=== PATIENT | female | born 1960 | race Caucasian/White ===

== ENCOUNTER → 2021-08-11 07:14 | Outpatient (BNVA) | payer BC, SELFPAY | PROVIDERS: PCP Internal Medicine; Referring Provider Internal Medicine; Visit Provider Physician Assistant | DX: Z13.89 Encounter for screening for other disorder (principal) ==

== ENCOUNTER 2022-05-25 10:25 | Outpatient (REF) | payer BC, SELFPAY ==
[2022-05-25 12:21] LABS: Alanine Aminotransferase 54 U/L (0-31); Anion Gap 8 (12-20); Aspartate Amino Transferase 46 U/L (5-31); Blood Urea Nitrogen 16 mg/dL (9-16); Calcium 9.2 mg/dL (8.4-10.2); Carbon Dioxide 32 mmol/L (22-29); Chloride 105 mmol/L (96-108); Cholesterol 238 mg/dL; Estimated Glomerular Filt Rate > 60; Glucose Fasting 83 mg/dL (60-99); HDL Cholesterol 42 mg/dL; LDL Cholesterol Calculated 165 mg/dl; Potassium 4.1 mmol/L (3.3-5.1); Sodium 141 mmol/L (135-145); Triglycerides 159 mg/dL
[2022-05-25 12:40] LABS: Vitamin D 25-OH Total 22.5 ng/mL (>30)
[2022-05-28 03:18] LABS: HPV mRNA E6/E7 rflx Not Detected (Not Detected)
== END 2022-05-25 10:26 | disposition home or self-care (01) ==
LOC: HO.HMGCLDS 10:25
PROVIDERS: PCP Internal Medicine; Visit Provider Internal Medicine
DX: Z00.00 Encounter for general adult medical examination without abnormal findings (principal); Z12.4 Encounter for screening for malignant neoplasm of cervix; Z11.51 Encounter for screening for human papillomavirus (HPV); E78.5 Hyperlipidemia, unspecified; F41.9 Anxiety disorder, unspecified; N95.1 Menopausal and female climacteric states; E55.9 Vitamin D deficiency, unspecified
CPT/HCPCS: 36415; 80048; 80061; 82306; 84450; 84460; 87624; 88142

== ENCOUNTER 2022-07-13 07:58 | Outpatient (REF) | payer BC, SELFPAY ==
--- NOTE | ~2022-07-13 | MM_ITS ---
EXAMINATION: MM SCREENING DIGITAL BREAST TOMOSYNTHESIS, BILATERAL CLINICAL INFORMATION: Screening. Asymptomatic. The lifetime risk of breast cancer based on the Tyrer-Cuzick Model is 9%. COMPARISON: Mammography: 11/28/2018, 08/10/2016 TECHNIQUE: Digital breast tomosynthesis is performed in both the craniocaudal and mediolateral oblique views along with computer-aided detection (CAD). Synthesized 2D images are generated from the tomosynthesis. FINDINGS: The breasts are heterogeneously dense, which may obscure small masses (ACR BI-RADS breast composition Category c). Fibronodular parenchymal pattern is similar to prior studies and there is no interval mass, developing density, or architectural abnormality. Again, there are numerous bilateral calcifications similar in number and distribution. The axilla and skin contours are unremarkable. No significant changes. MM/MM tomosynthesis screening BI IMPRESSION: No mammographic evidence of malignancy. ASSESSMENT: BI-RADS 2: Benign RECOMMENDATION: Routine annual mammography screening. This patient's information was entered into a reminder system with a target due date for their next mammogram.
== END 2022-07-13 07:59 | disposition home or self-care (01) ==
LOC: HO.MAMMO 07:58
PROVIDERS: PCP Internal Medicine; Visit Provider Internal Medicine
DX: Z12.31 Encounter for screening mammogram for malignant neoplasm of breast (principal)
CPT/HCPCS: 77063; 77067

== ENCOUNTER 2023-06-22 08:54 | Outpatient (AMB) | payer OTHER, SELFPAY ==
[2023-06-22 09:05] VITALS: BP 142/90; PULSE 74; O2SAT 97; BMI 22.7
--- NOTE | 2023-06-22 09:05 | MHC.PC.OV ---
Vital Signs 06/22/23 09:05 Height 5 ft 4 in Weight 132 lb BMI 22.7 BP 142/90 H Blood Pressure Location Rt brachial Position Sitting Pulse 74 Pulse Source Pulse Oximeter Pulse Oximetry (%) 97 Oxygen Delivery Method Room Air Intake Visit Reasons: PE Intake Note: Pt is here today for her PE: Last mammogram 07/13/22, Papsmear 05/25/22 and never had a colonoscope Allergies No Known Allergies Allergy (Verified 06/22/23 09:26) Medication List - Last Reconciled 06/22/23 by Lisha Lezama MD cholecalciferol (vitamin D3) 50 mcg PO DAILY lorazepam 0.5 mg PO DAILY PRN paroxetine HCl 20 mg PO DAILY Tobacco use date assessed: 06/22/23 Dental Screening Dental Screen Date: 06/22/23 Did you have a dental visit in the last 12 months?: Yes Did you have a dental problem in the last 6 months where you did not have access to dental care?: No Was dental information given to patient?: Patient has dentist HPI PE HPI Details 62-year-old lady here today for physical exam. She is up-to-date with her mammogram, last done 07/13/22, and already has an upcoming appointment for her recheck. Papsmear was done 05/25/22 and never had a colonoscopy. She has no family history for colon cancer and does not have any GI complaints, would like to try Cologuard testing instead. She has generalized anxiety disorder currently on paroxetine and lorazepam the latter taken only on as needed basis. Blood pressure mildly elevated on this visit, patient states that she has been under lot of stress taking care her sick dog. 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 1. Little interest or pleasure in doing things: not at all 2. Feeling down, depressed, or hopeless: not at all 3. Trouble falling or staying asleep, or sleeping too much: not at all 4. Feeling tired or having little energy: not at all 5. Poor appetite or overeating: not at all 6. Feeling bad about yourself - or that you are a failure or have let yourself or your family down: not at all 7. Trouble concentrating on things, such as reading the newspaper or watching television: not at all 8. Moving or speaking so slowly that other people could have noticed. Or the opposite - being so fidgety or restless that you have been moving around a lot more than usual: not at all 9. Thoughts that you would be better off or of hurting yourself in some way: not at all Total score: 0 Depression Screening Interpretation: Negative Depression Screening Done: Yes 64670 - PHQ-9 Billing: Yes Source: Developed by Drs. Sidney Lam, Sumaya Dowd, Otoniel Mtz and colleagues, with an educational chay from [employer]. Thrive Questionnaire Date Thrive assessed: 06/22/23 I am a: Patient What is your living situation today?: I have a steady place to live Within the past 12 months, did the food you bought not last and you didn't have the money to get more?: Never true Within the past 12 months, did you worry whether your food would run out before you got money to buy more?: Never true Do you have trouble paying for medicines?: No Do you have trouble getting transportation to medical appointments?: No Do you have trouble paying your heating and electricity bill?: No Do you have trouble taking care of your child, family member or friend?: No Do you have trouble with day-to-day activities such as bathing, preparing meals, shopping, managing finances, etc.?: No Are you currently unemployed and looking for a job?: No Are you interested in more education?: No THRIVE Score: 0 AUDIT C Alcohol Use Questionnaire (AUDIT-C) 1. How often do you have a drink containing alcohol?: Never Total Score: 0 NOEMY-7 AMB Questionnaire NOEMY-7 Date NOEMY - 7 assessed: 06/22/23 Feeling nervous, anxious, or on edge: 1 = Several days Not being able to stop or control worryin = Several days Worrying too much about different things: 0 = Not at all Trouble relaxin = Several days Being so restless that it is hard to sit still: 0 = Not at all Becoming easily annoyed or irritable: 2 = More than half the days Feeling afraid as if something awful might happen: 0 = Not at all Total NOEMY-7 score (0-4 normal; 5-9 mild; 10-14 moderate; 15-21 severe): 5 Source: Developed by Drs. Sidney Lam, Sumaya Dowd, Otoniel Mtz and colleagues, with an educational chay from [employer]. NOEMY-7 Assessment Billing NOEMY-7 Assessment Tool: NOEMY-7 Assessment 43729 Review of Systems Const Denies body aches, Denies fatigue, Denies fever(s), Denies headache(s) and Denies weakness Eyes Denies change in vision ENT Denies dizziness, Denies headache(s), Denies nasal congestion, Denies nasal discharge and Denies sore throat Card Denies chest pain, Denies lightheadedness, Denies palpitations and Denies dyspnea Resp Denies chest congestion, Denies cough, Denies dyspnea and Denies wheezing GI Denies abdominal pain, Denies change in bowel habits and Denies heartburn Denies urinary frequency, Denies dysuria and Denies urinary urgency Musc Reports no additional complaints Skin/Breast Denies lesions and Denies rash Neuro Denies dizziness, Denies headache(s) and Denies weakness Psych Reports no additional complaints Endo Denies fatigue, Denies polydipsia, Denies polyuria and Denies palpitations James/Lymph Denies easy bruising Aller/Immun Denies seasonal rhinorrhea and Denies wheezing Physical exam (Primary Care) Vital Signs: Last Vital Signs Pulse 74 06/22/23 09:05 BP 142/90 H 06/22/23 09:05 Pulse Ox 97 06/22/23 09:05 Oxygen Delivery Method Room Air 06/22/23 09:05 BMI result Body Mass Index 22.7 Tobacco/Smoking Status: Tobacco use Status Tobacco use date assessed 06/22/23 06/22/23 09:15 Patient Tobacco Use Status Never used Tobacco 06/22/23 09:15 e-Cigarette/Vaping Use Never Used 06/22/23 09:15 PHQ-9: PHQ-9 Score PHQ-9: Total score 0 06/22/23 09:44 Depression Screening Interpretation: Negative Thrive Assessment: Date of Thrive Assessment Date Thrive assessed 06/22/23 06/22/23 09:15 Const General: no acute distress and alert Orientation/consciousness: patient oriented x3 HENMT Head: Yes normocephalic and Yes atraumatic Ears: hearing grossly normal bilaterally, TM's normal bilaterally and EAC's normal General nose exam: Normal external nose present Face and sinus: Yes face symmetric Mouth: Normal oral and palatal mucosa present, tongue normal, oropharynx normal and moist mucous membranes Eyes General: appearance normal, both eyes and all related structures Periorbital: periorbital findings normal Eyelids: Yes eyelids normal Conjunctivae: conjunctivae normal Sclerae: sclerae normal Pupils: Equal, round and reactive pupils present EOM: EOMs intact bilaterally Neck Neck: Yes full ROM, Yes no lymphadenopathy and Yes supple Thyroid: Thyroid normal Chest Chest palpation & inspection: normal inspection of the chest Breast/axilla inspection: normal inspection of the breasts Breast/axilla palpation: normal palpation of the breasts Resp Effort & Inspection: normal respiratory effort and able to speak in complete sentences Auscultation: clear to auscultation bilaterally Cardio Palpation: normal PMI Rate: regular rate Rhythm: regular rhythm Heart sounds: S1 normal heart sound present and S2 normal heart sound present Bruits: no abdominal aortic bruits GI Inspection: Yes normal to inspection Palpation (GI): No Abdominal aortic bruit present, Soft to palpation, nontender, no guarding and no masses Auscultation: normal bowel sounds General: Yes no CVA tenderness Back/Spine/Pelvis Back: no CVA tenderness Skin General skin exam: no rashes or lesions noted Neuro General: patient oriented x3, gait normal, tone normal, moves all extremities, Normal light touch and pain sensation, no focal motor deficits and CN's II-XI intact bilaterally Cranial nerves: Yes Equal, round and reactive pupils present Extrem General: Yes full ROM, Yes no joint enlargement, Yes no clubbing, cyanosis or edema, Yes no pedal edema, Yes no calf tenderness and Yes normal gait Psych Appearance: grossly normal and well kempt Mental Status: mental status grossly normal Speech and movement: Normal speech and movement present Affect: normal affect Attitude: cooperative Thought process: Normal thought process present Thought content: Normal thought content present Assessment and Plan Assessment & Plan (1) Adult general medical exam: Code(s): Z00.00 - Encounter for general adult medical examination without abnormal findings Plan: Will check appropriate labs. Continue with regular dental visit every 6 months and regular eye exams, at least every 2 years. Take adequate calcium in diet and vitamin-D 3 at 2000 IU per cap once a day, in addition to weight-bearing exercises to help maintain good muscle tone and weight control. Instructed to do self-breast exam, and continue with yearly mammogram, already has an appointment scheduled for her repeat mammogram this year. Up-to-date with her cervical cancer screening.. Cologuard testing ordered for colon cancer screening. Reminded to get her flu vaccine and COVID vaccination as well shingles vaccination. Up-to-date with Tdap (2) Anxiety: Code(s): F41.9 - Anxiety disorder, unspecified Plan: Continue with paroxetine, refill sent for lorazepam to take only as needed for acute anxiety attacks (3) Vitamin D deficiency: Code(s): E55.9 - Vitamin D deficiency, unspecified Plan: Will repeat another vitamin-D level, in the meantime continue with cholecalciferol 50 mcg a day (4) Dyslipidemia: Code(s): E78.5 - Hyperlipidemia, unspecified Plan: Fasting lipid panel ordered. Reinforced importance of following a healthy diet and getting regular exercise (5) Elevated blood pressure reading: Code(s): R03.0 - Elevated blood-pressure reading, without diagnosis of hypertension Plan: Reinforced importance of following a low-salt diet, getting regular exercise, and managing stress levels. EKG done today showed normal sinus rhythm with no acute ST-T changes seen. Return to clinic in 2 weeks to check blood pressure with nurse. Orders: Orders Vitamin D 25-OH Total Today E55.9 - Vitamin D deficiency, unspecified, E78.5 - Hyperlipidemia, unspecified, F41.9 - Anxiety disorder, unspecified, Z00.00 - Encounter for general adult medical examination without abnormal findings Complete Blood Count Auto Diff Today E55.9 - Vitamin D deficiency, unspecified, E78.5 - Hyperlipidemia, unspecified, F41.9 - Anxiety disorder, unspecified, Z00.00 - Encounter for general adult medical examination without abnormal findings Lipid Panel Today E55.9 - Vitamin D deficiency, unspecified, E78.5 - Hyperlipidemia, unspecified, F41.9 - Anxiety disorder, unspecified, Z00.00 - Encounter for general adult medical examination without abnormal findings Comprehensive [place]. Panel Fast Today E55.9 - Vitamin D deficiency, unspecified, E78.5 - Hyperlipidemia, unspecified, F41.9 - Anxiety disorder, unspecified, Z00.00 - Encounter for general adult medical examination without abnormal findings AMB EKG-In Office Today R03.0 - Elevated blood-pressure reading, without diagnosis of hypertension, Z82.49 - Family history of ischemic heart disease and other diseases of the circulatory system Referrals Cologuard Test Z12.11 - Encounter for screening for malignant neoplasm of colon, Z12.12 - Encounter for screening for malignant neoplasm of rectum Medications: Refilled lorazepam 0.5 mg PO DAILY PRN 10 tabs 0RF anxiety F41.9 - Anxiety disorder, unspecified Coding Level of Care Code Est Pt Prev Care 40-64y(62367) Diagnoses Adult general medical exam Z00.00 Anxiety F41.9 Vitamin D deficiency E55.9 Dyslipidemia E78.5 Elevated blood pressure reading R03.0 Additional Codes NOEMY-7 Assessment Billing - NOEMY-7 Assessment Tool: NOEMY-7 Assessment 28049 ([id number])
== END 2023-06-22 11:54 | disposition home or self-care (01) ==
PROVIDERS: PCP Internal Medicine; Visit Provider Internal Medicine
DX: Z00.00 Encounter for general adult medical examination without abnormal findings (principal); F41.9 Anxiety disorder, unspecified; E55.9 Vitamin D deficiency, unspecified; E78.5 Hyperlipidemia, unspecified; R03.0 Elevated blood-pressure reading, without diagnosis of hypertension
CPT/HCPCS: 99396

== ENCOUNTER 2023-06-22 10:12 | Outpatient (REF) | payer OTHER, SELFPAY ==
[2023-06-22 13:02] LABS: MANUAL DIFF FLAG NO
[2023-06-22 13:29] LABS: Basophils Percent Auto 0.6 % (0-2); Eosinophils Absolute Auto 0.1 X10*3/uL (0.0-0.4); Eosinophils Percent Auto 3.8 % (0-4); Hematocrit 39.8 % (37.0-47.0); Hemoglobin 13.5 g/dl (12.0-16.0); Lymphocytes Absolute Auto 1.3 X10*3/uL (1.2-4.9); Mean Corpuscular HGB Conc 33.9 g/dl (31.0-35.0); Mean Corpuscular Hemoglobin 30.5 pg (27.0-33.0); Mean Corpuscular Volume 89.8 fL (80.0-98.0); Mean Platelet Volume 10.3 fL (9.4-12.3); Monocytes Absolute Auto 0.3 X10*3/uL (0.1-1.2); Monocytes Percent Auto 7.5 % (2-11); Neutrophils Absolute Auto 1.8 x10*3/uL (2.0-8.3); Neutrophils Percent Auto 51.1 % (45-73); Platelet Count 269 X10*3/uL (160-400); Red Blood Count 4.43 X10*6/uL (4.20-5.50); Red Cell Distribution Width 11.5 % (11.0-16.0); White Blood Count 3.5 X10*3/uL (4.8-10.8)
[2023-06-22 13:53] LABS: Alanine Aminotransferase 22 U/L (0-31); Albumin Level 4.5 g/dL (3.5-5.0); Alkaline Phosphatase 75 U/L (39-117); Anion Gap 11 (12-20); Aspartate Amino Transferase 21 U/L (5-31); Bilirubin Total 0.4 mg/dL (0.0-1.0); Blood Urea Nitrogen 18 mg/dL (9-16); Calcium 9.5 mg/dL (8.4-10.2); Carbon Dioxide 29 mmol/L (22-29); Chloride 108 mmol/L (96-108); Cholesterol 222 mg/dL (<200); Estimated Glomerular Filt Rate > 60; Glucose Fasting 92 mg/dL (60-99); HDL Cholesterol 52 mg/dL (>40); LDL Cholesterol Calculated 147 mg/dL (<100); Potassium 4.4 mmol/L (3.3-5.1); Sodium 144 mmol/L (135-145); Total Protein 7.5 g/dL (6.5-8.0); Triglycerides 119 mg/dL (<150)
== END 2023-06-22 10:13 | disposition home or self-care (01) ==
LOC: HO.HMGCLDS 10:12
PROVIDERS: PCP Internal Medicine; Visit Provider Internal Medicine
DX: Z00.00 Encounter for general adult medical examination without abnormal findings (principal); E78.5 Hyperlipidemia, unspecified; E55.9 Vitamin D deficiency, unspecified; F41.9 Anxiety disorder, unspecified
CPT/HCPCS: 36415; 80053; 80061; 82306; 85025

== ENCOUNTER 2024-05-23 13:35 | Outpatient (AMB) | payer OTHER, SELFPAY ==
[2024-05-23 14:25] VITALS: BP 112/70; PULSE 68; O2SAT 95; BMI 22.3
--- NOTE | 2024-05-23 14:25 | AM.OFFWIN_ITS ---
Intake Vital Signs 05/23/24 14:25 Height 5 ft 4 in Weight 130 lb BMI 22.3 BP 112/70 Blood Pressure Location Lt brachial Position Sitting Pulse 68 Pulse Source Pulse Oximeter Pulse Oximetry (%) 95 Oxygen Delivery Method Room Air Intake Visit Reasons: EP Neck pain Intake Note: Pt is here today for a walk in visit. Pt c/o neck pain since April. Patient Tobacco Use Status: Never used Tobacco Allergies No Known Allergies Allergy (Verified 05/23/24 14:37) HPI HPI Comments History of Present Illness Details 63 y/o female patient who presents to [facility] walk in clinic with c/o chronic neck pain for few years now. Reports that pain comes and goes on its own. Denies injury or trauma to the neck. Denies any recent surgery. [facility] Medical History (Updated 06/29/23 @ 23:52 by Lisha Lezama MD) Carpal tunnel syndrome, right Vitamin D deficiency Dyslipidemia Adult general medical exam Colon cancer screening Surgical History No pertinent past surgical history Family History Maternal Uncle History of myocardial infarction Coronary artery disease Mother Coronary artery disease Maternal Aunt Coronary artery disease, Onset Age: 70 Brother Coronary artery disease Social History Housing: House Patient Tobacco Use Status: Never used Tobacco e-Cigarette/Vaping Use: Never Used Second Hand Smoke Exposure: No service: No Current occupational status: employed 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 [employer] Current occupational exposures/hazards: No Cognitive needs: No Hearing needs: No Vision needs: Yes Review of Systems Const All systems reviewed & are unremarkable except as noted in HPI and below Physical Exam Vital Signs: Last Vital Signs Pulse 68 05/23/24 14:25 BP 112/70 05/23/24 14:25 Pulse Ox 95 05/23/24 14:25 Oxygen Delivery Method Room Air 05/23/24 14:25 BMI result Body Mass Index 22.3 Const General: cooperative and no acute distress Orientation/consciousness: patient oriented x3 Neck Neck: Yes no lymphadenopathy and Yes trachea midline Back/Spine/Pelvis Cervical Spine: cervical muscular tenderness, pain with cervical ROM, cervical spasm and Cervical spine tenderness Neuro General: patient oriented x3, gait normal and moves all extremities Psych Speech and movement: Normal speech and movement present Assessment & Plan Assessment & Plan (1) Cervicalgia: Code(s): M54.2 - Cervicalgia Plan: Ordered PT Ordered Ibuprofen and muscle relaxants. Orders: Orders PT Evaluation and Treatment Today M54.2 - Cervicalgia Medications: New ibuprofen 800 mg PO Q8H 30 tabs 0RF M54.2 - Cervicalgia cyclobenzaprine 10 mg (2 x 5 mg) PO BEDTIME 20 tabs 0RF M54.2 - Cervicalgia lidocaine 5% leave on most painful area for up to 12 hrs 1 patch topical DAILY 30 ea 0RF M54.2 - Cervicalgia Coding Level of Care Code Est Pt Level 3 (37625) Diagnoses Cervicalgia M54.2 Time Spent (min) 15
== END 2024-05-23 15:13 | disposition home or self-care (01) ==
PROVIDERS: PCP Internal Medicine; Visit Provider Nurse Practitioner Family
DX: M54.2 Cervicalgia (principal)

== ENCOUNTER → 2024-05-23 13:35 | Outpatient (BNVA) | payer OTHER, SELFPAY | PROVIDERS: PCP Internal Medicine; Visit Provider Nurse Practitioner Family ==

== ENCOUNTER 2024-06-19 08:00 | Outpatient (RCR) | payer OTHER, SELFPAY ==
--- NOTE | 2024-06-05 12:50 | MHC.PT.EP ---
[facility] [place] Office [place] Office [place] Office [address] [phone] F: [phone] F: [phone] F: [phone] F: [phone] Physical Therapy Plan of Care Date of Evaluation: 06/05/24 Date of Surgery: Diagnosis: neck pain, cervicalgia Assessment: Patient is a 63 year old R handed female who presents with s/s consistent with cervicalgia, neck pain. 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 Patient past medical history includes carpal tunnel syndrome. Current impairments include pain, posture, ROM, strength, activity tolerance and functional mobility. Functional limitations include decreased ability to lift, push, pull, carry, turn head, drive and sleep. Patient is motivated with good rehab potential. Skilled PT will address impairments and functional limitations in order to achieve goals. Frequency and Duration: The patient will be seen 2x/week for 5 weeks Short Term Goals: I with HEP - 2 weeks AROM rotation to 48 b/l - 3 weeks Max pain with daily routine 6/10 - 3 weeks [place] Goals: Max pain with daily routine 3/10 - 5 weeks AROM rotation 55 b/l - 5 weeks NPDI 10% or less - 5 weeks Treatment Plan: Modalities to reduce pain, spasms and effusion. Manual therapy to restore motion and function. Therapeutic exercise to improve strength and flexibility. Neuromuscular re-education for posture and balance. Therapeutic activities to return to functional activities of daily living. Electronically signed by: Júnior Patel, PT Please sign and return to therapist. Thank you for your referral.
--- NOTE | 2024-07-31 10:25 | MHC.PT.DC ---
[facility] [place] Office [place] Office [place] Office [address] Stella Richard [address] [phone] F: [phone] F: [phone] F: [phone] F: [phone] Physical Therapy Discharge Report Diagnosis: neck pain, cervicalgia Date of Surgery: Date of Evaluation: 06/05/24 Date of Discharge: 07/01/24 Treatments to Date: 4 Cancellations to Date: No Shows to Date: Discharge Status: Patient Elected to Stop Discharge Summary: 06/19/24: pt has been feeling better overall with skilled PT. no adverse reactions. adding postural ex to tolerance. 06/17/24: progressing slowly and cautiously. continue to progress as tolerated. reduced discomfort through the weekend. 06/12/24: pt with LAWRENCE afte last visit. educated on HEP modification and reduced pressure with manual. improved response today. 06/10/24: pt progressing well with skilled PT. added/updated HEP today. no adverse reactions. continue to progress as tolerated. Patient is a 63 year old R handed female who presents with s/s consistent with cervicalgia, neck pain. 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 Patient past medical history includes carpal tunnel syndrome. Current impairments include pain, posture, ROM, strength, activity tolerance and functional mobility. Functional limitations include decreased ability to lift, push, pull, carry, turn head, drive and sleep. Patient is motivated with good rehab potential. Skilled PT will address impairments and functional limitations in order to achieve goals. Electronically signed by: Júnior Patel, PT Please sign and return to therapist. Thank you for your referral.
== END 2024-07-31 10:26 | disposition home or self-care (01) ==
LOC: HO.PTCHIC 08:00
PROVIDERS: PCP Internal Medicine; Visit Provider Nurse Practitioner Family
DX: M54.2 Cervicalgia (principal)
CPT/HCPCS: 97110; 97140; 97162

== ENCOUNTER 2024-07-02 08:23 | Outpatient (AMB) | payer OTHER, SELFPAY ==
[2024-07-02 08:45] VITALS: BP 112/60; PULSE 73; RESP 16; TEMP 36.7; O2SAT 98; BMI 22.3
--- NOTE | 2024-07-02 08:45 | MHC.PC.OV ---
Vital Signs 07/02/24 08:45 Height 5 ft 4 in Weight 130 lb BMI 22.3 BP 112/60 Blood Pressure Location Rt brachial Position Sitting Respiration 16 Pulse 73 Pulse Source Pulse Oximeter Temp 98.1 F Temp Source Oral Pulse Oximetry (%) 98 Oxygen Delivery Method Room Air Intake Visit Reasons: PE Intake Note: Pt is here today for her PE: last mammogram 07/13/22, papsmear 05/25/22, cologuard 09/02/23 Allergies No Known Allergies Allergy (Verified 07/02/24 09:12) Medication List - Last Reconciled 07/02/24 by Lisha Lezama MD ibuprofen 800 mg PO Q8H lidocaine 5% 1 patch topical DAILY lisinopril 5 mg PO DAILY lorazepam 0.5 mg PO DAILY PRN paroxetine HCl 20 mg PO DAILY Tobacco use date assessed: 07/02/24 Dental Screening Dental Screen Date: 06/22/23 Did you have a dental visit in the last 12 months?: Yes Did you have a dental problem in the last 6 months where you did not have access to dental care?: No Was dental information given to patient?: Patient has dentist HPI PE HPI Details 63-year-old lady here today for physical exam. She has hypertension, currently stable and controlled on lisinopril 5 mg daily. She takes paroxetine 20 mg daily and lorazepam as needed for acute anxiety attacks which has been helping. She is up-to-date on her cervical cancer screening, last done in 2022 with negative results, but is overdue for screening mammogram. Colon cancer screening done with Cologuard which came back negative 09/01/2023. Due again in 2026. Complains of intermittent pain in posterior neck, sometimes radiating up back of her head. No history of trauma or strenuous exertion. Takes ibuprofen which affords only temporary relief . [facility] Medical History (Updated 07/02/24 @ 09:47 by Lisha Lezama MD) Essential hypertension Cervicalgia of cudljreb-xkgugnv-snlgp region Carpal tunnel syndrome, right Vitamin D deficiency Dyslipidemia Adult general medical exam Colon cancer screening Surgical History No pertinent past surgical history Family History Maternal Uncle History of myocardial infarction Coronary artery disease Mother Coronary artery disease Maternal Aunt Coronary artery disease, Onset Age: 70 Brother Coronary artery disease Social History Housing: House Patient Tobacco Use Status: Never used Tobacco e-Cigarette/Vaping Use: Never Used Second Hand Smoke Exposure: No service: No Current occupational status: retired 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 1. Little interest or pleasure in doing things: not at all 2. Feeling down, depressed, or hopeless: not at all 3. Trouble falling or staying asleep, or sleeping too much: not at all 4. Feeling tired or having little energy: not at all 5. Poor appetite or overeating: not at all 6. Feeling bad about yourself - or that you are a failure or have let yourself or your family down: not at all 7. Trouble concentrating on things, such as reading the newspaper or watching television: not at all 8. Moving or speaking so slowly that other people could have noticed. Or the opposite - being so fidgety or restless that you have been moving around a lot more than usual: not at all 9. Thoughts that you would be better off or of hurting yourself in some way: not at all Total score: 0 Depression Screening Interpretation: Negative Depression Screening Done: Yes 65049 - PHQ-9 Billing: Yes Source: Developed by Drs. Sidney Lam, Sumaya Dowd, Otoniel Mtz and colleagues, with an educational chay from [employer] Thrive Questionnaire Date Thrive assessed: 07/02/24 I am a: Patient What is your living situation today?: I have a steady place to live Within the past 12 months, did the food you bought not last and you didn't have the money to get more?: Never true Within the past 12 months, did you worry whether your food would run out before you got money to buy more?: Never true Do you have trouble paying for medicines?: No Do you have trouble getting transportation to medical appointments?: No Do you have trouble paying your heating and electricity bill?: No Do you have trouble taking care of your child, family member or friend?: No Do you have trouble with day-to-day activities such as bathing, preparing meals, shopping, managing finances, etc.?: No Are you currently unemployed and looking for a job?: No Are you interested in more education?: No Please select the resources that you would like help with: None Currently or been in a relationship where the following occur: No concerns reported THRIVE Score: 0 AUDIT C Alcohol Use Questionnaire (AUDIT-C) 1. How often do you have a drink containing alcohol?: Never Total Score: 0 NOEMY-7 AMB Questionnaire NOEMY-7 Date NOEMY - 7 assessed: 07/02/24 Feeling nervous, anxious, or on edge: 1 = Several days Not being able to stop or control worryin = Not at all Worrying too much about different things: 0 = Not at all Trouble relaxin = Not at all Being so restless that it is hard to sit still: 0 = Not at all Becoming easily annoyed or irritable: 0 = Not at all Feeling afraid as if something awful might happen: 0 = Not at all Total NOEMY-7 score (0-4 normal; 5-9 mild; 10-14 moderate; 15-21 severe): 1 Source: Developed by Drs. Sidney Lam, Sumaya Dowd, Otoniel Mtz and colleagues, with an educational chay from [employer] NOEMY-7 Assessment Billing NOEMY-7 Assessment Tool: NOEMY-7 Assessment 22602 Review of Systems Const Denies body aches, Denies fatigue, Denies fever(s), Denies headache(s) and Denies weakness Eyes Denies change in vision ENT Denies dizziness, Denies headache(s), Denies nasal congestion, Denies nasal discharge and Denies sore throat Card Denies chest pain, Denies lightheadedness, Denies palpitations and Denies dyspnea Resp Denies chest congestion, Denies cough, Denies dyspnea and Denies wheezing GI Denies abdominal pain, Denies change in bowel habits and Denies heartburn Denies urinary frequency, Denies dysuria and Denies urinary urgency Musc Reports as per HPI Skin/Breast Denies lesions and Denies rash Neuro Denies dizziness, Denies headache(s) and Denies weakness Psych Reports no additional complaints Endo Denies fatigue, Denies polydipsia, Denies polyuria and Denies palpitations James/Lymph Denies easy bruising Aller/Immun Denies seasonal rhinorrhea and Denies wheezing Physical exam (Primary Care) Vital Signs: Last Vital Signs Temp 98.1 F 07/02/24 08:45 Pulse 73 07/02/24 08:45 Resp 16 07/02/24 08:45 BP 112/60 07/02/24 08:45 Pulse Ox 98 07/02/24 08:45 Oxygen Delivery Method Room Air 07/02/24 08:45 BMI result Body Mass Index 22.3 Tobacco/Smoking Status: Tobacco use Status Tobacco use date assessed 07/02/24 07/02/24 09:07 Patient Tobacco Use Status Never used Tobacco 07/02/24 08:47 e-Cigarette/Vaping Use Never Used 07/02/24 08:47 PHQ-9: PHQ-9 Score PHQ-9: Total score 0 07/02/24 09:12 Depression Screening Interpretation: Negative Thrive Assessment: Date of Thrive Assessment Date Thrive assessed 06/22/23 07/02/24 08:47 Currently or been in a relationship where the following occur: No concerns reported Const General: no acute distress and alert Orientation/consciousness: patient oriented x3 HENMT Head: Yes normocephalic Ears: hearing grossly normal bilaterally, external ears normal and Abnormal EAC present excessive cerumen on the right General nose exam: Normal external nose present Face and sinus: Yes face symmetric Mouth: Normal oral and palatal mucosa present and moist mucous membranes Eyes General: appearance normal, both eyes and all related structures Neck Other: Slight pain on palpation over bilateral trapezius and ferrous cervical muscles and posterior neck, no mass or swelling Neck: Yes full ROM, Yes no lymphadenopathy and Yes supple Thyroid: Thyroid normal Chest Chest palpation & inspection: normal inspection of the chest Breast/axilla inspection: normal inspection of the breasts Breast/axilla palpation: normal palpation of the breasts Resp Effort & Inspection: normal respiratory effort and able to speak in complete sentences Auscultation: clear to auscultation bilaterally Cardio Palpation: normal PMI Rate: regular rate Rhythm: regular rhythm Heart sounds: S1 normal heart sound present and S2 normal heart sound present Bruits: no abdominal aortic bruits GI Inspection: Yes normal to inspection Palpation (GI): No Abdominal aortic bruit present, Soft to palpation, nontender, no guarding and no masses Auscultation: normal bowel sounds General: Yes no CVA tenderness Back/Spine/Pelvis Back: no CVA tenderness Skin General skin exam: no rashes or lesions noted Neuro General: patient oriented x3, gait normal, tone normal, moves all extremities, Normal light touch and pain sensation, no focal motor deficits and CN's II-XI intact bilaterally Extrem General: Yes full ROM, Yes no joint enlargement, Yes no clubbing, cyanosis or edema, Yes no pedal edema, Yes no calf tenderness and Yes normal gait Psych Appearance: grossly normal and well kempt Mental Status: mental status grossly normal Speech and movement: Normal speech and movement present Affect: normal affect Attitude: cooperative Thought process: Normal thought process present Thought content: Normal thought content present Coding Level of Care Code Est Pt Prev Care 40-64y(66616) Diagnoses Anxiety F41.9 Dyslipidemia E78.5 Annual visit for general adult medical examination with abnormal findings Z00.01 Cervicalgia of xgtobpwj-czlwkxf-jqzql region M54.2 Carpal tunnel syndrome, right G56.01 Impacted cerumen of right ear H61.21 Advanced directives, counseling/discussion Z71.89 Essential hypertension I10 Additional Codes PHQ-9 - 65324 - PHQ-9 Billing: Yes ([id number]) NOEMY-7 Assessment Billing - NOEMY-7 Assessment Tool: NOEMY-7 Assessment 51216 ([id number]) Assessment & Plan Assessment & Plan (1) Anxiety: Code(s): F41.9 - Anxiety disorder, unspecified Category: Medical Plan: Continue on paroxetine 10 mg daily and takes lorazepam only as needed for acute anxiety attacks, refill sent (2) Dyslipidemia: Code(s): E78.5 - Hyperlipidemia, unspecified Category: Medical Plan: Fasting lipid panel ordered today. Reinforced importance of following low-cholesterol diet and getting regular exercise. (3) Annual visit for general adult medical examination with abnormal findings: Code(s): Z00.01 - Encounter for general adult medical examination with abnormal findings Plan: Will check appropriate labs. Recommended dental visit every 6 months and regular eye exams, at least every 2 years. Take adequate calcium in diet and vitamin-D 3 at 1999 IU per cap once a day, in addition to weight-bearing exercises to help maintain good muscle tone and weight control. Instructed to do self-breast exam, and recommended to get yearly mammogram, ordered today together with a bone density scan , had a negative Cologuard in 2023, due again in 2026 for colon cancer screening. Does not want to get COVID boosters, has not yet had her flu vaccine this year, states he will just get it the next flu season. Reminded to get her shingles vaccine . Up-to-date with her Tdap (4) Cervicalgia of bxklnppu-vlhcdpx-zepis region: Code(s): M54.2 - Cervicalgia Category: Medical Plan: No improvement with ibuprofen, referred to pain management clinic (5) Carpal tunnel syndrome, right: Comment: Seen on nerve conduction study done 06/28/2023 done at [facility], ordered by JOSE Code(s): G56.01 - Carpal tunnel syndrome, right upper limb Category: Medical Plan: Currently followed at [facility], who did recommend surgical repair. Patient did not get it done due to her schedule, thinking of getting it later this year (6) Impacted cerumen of right ear: Code(s): H61.21 - Impacted cerumen, right ear Category: Medical Plan: Advised to get fzkf-lbb-ahszhuh Cerumenex ear drops for her ear wax removal kit instructed on proper use (7) Advanced directives, counseling/discussion: Code(s): Z71.89 - Other specified counseling Plan: Initiated the conversation about Advanced Directives. Advanced Directives help patients prepare for current and future decisions about their medical treatment and place of care. Discussed with patient that it is a process where a patients current condition and prognosis are reviewed, their wishes for information regarding their illness are elicited, and likely medical dilemmas are presented and options discussed. Healthcare proxy form completed today. The form can be amended as needed, reviewed yearly and make changes as needed (8) Essential hypertension: Code(s): I10 - Essential (primary) hypertension Category: Medical Plan: Blood pressure at goal of less than 130/80. Continue lisinopril 5 mg taken once a day. Reinforced importance of following a low sodium diet, getting regular exercise, and lowering stress levels. Orders: Orders Aspartate Amino Transferase 07/02/24 E55.9 - Vitamin D deficiency, unspecified, E78.5 - Hyperlipidemia, unspecified, Z00.01 - Encounter for general adult medical examination with abnormal findings, Z13.1 - Encounter for screening for diabetes mellitus, Z78.0 - Asymptomatic menopausal state Vitamin D 25-OH Total 07/02/24 E55.9 - Vitamin D deficiency, unspecified, E78.5 - Hyperlipidemia, unspecified, Z00.01 - Encounter for general adult medical examination with abnormal findings, Z13.1 - Encounter for screening for diabetes mellitus, Z78.0 - Asymptomatic menopausal state MM tomosynthesis screening BI 07/02/24 Z12.31 - Encounter for screening mammogram for malignant neoplasm of breast, Z13.820 - Encounter for screening for osteoporosis, Z78.0 - Asymptomatic menopausal state Alanine Aminotransferase 07/02/24 E55.9 - Vitamin D deficiency, unspecified, E78.5 - Hyperlipidemia, unspecified, Z00.01 - Encounter for general adult medical examination with abnormal findings, Z13.1 - Encounter for screening for diabetes mellitus, Z78.0 - Asymptomatic menopausal state Basic Metabolic Panel Fasting 07/02/24 E55.9 - Vitamin D deficiency, unspecified, E78.5 - Hyperlipidemia, unspecified, Z00.01 - Encounter for general adult medical examination with abnormal findings, Z13.1 - Encounter for screening for diabetes mellitus, Z78.0 - Asymptomatic menopausal state Lipid Panel 07/02/24 E55.9 - Vitamin D deficiency, unspecified, E78.5 - Hyperlipidemia, unspecified, Z00.01 - Encounter for general adult medical examination with abnormal findings, Z13.1 - Encounter for screening for diabetes mellitus, Z78.0 - Asymptomatic menopausal state XR DEXA axial skeleton 07/02/24 Z12.31 - Encounter for screening mammogram for malignant neoplasm of breast, Z13.820 - Encounter for screening for osteoporosis, Z78.0 - Asymptomatic menopausal state Referrals Pain Management Referral M54.2 - Cervicalgia Medications: Refilled lorazepam 0.5 mg PO DAILY PRN 10 tabs 0RF anxiety F41.9 - Anxiety disorder, unspecified
== END 2024-07-02 09:59 | disposition home or self-care (01) ==
PROVIDERS: PCP Internal Medicine; Visit Provider Internal Medicine
DX: F41.9 Anxiety disorder, unspecified (principal); E78.5 Hyperlipidemia, unspecified; Z00.01 Encounter for general adult medical examination with abnormal findings; M54.2 Cervicalgia; G56.01 Carpal tunnel syndrome, right upper limb; H61.21 Impacted cerumen, right ear; Z71.89 Other specified counseling; I10 Essential (primary) hypertension

== ENCOUNTER 2024-07-02 08:23 | Outpatient (REF) | payer OTHER, SELFPAY ==
[2024-07-02 14:14] LABS: Alanine Aminotransferase 35 U/L (0-31); Anion Gap 10 (12-20); Aspartate Amino Transferase 29 U/L (5-31); Blood Urea Nitrogen 23 mg/dL (9-16); Calcium 9.3 mg/dL (8.4-10.2); Carbon Dioxide 26 mmol/L (22-29); Chloride 111 mmol/L (96-108); Cholesterol 214 mg/dL (<200); Estimated Glomerular Filt Rate > 60; Glucose Fasting 94 mg/dL (60-99); HDL Cholesterol 52 mg/dL (>40); LDL Cholesterol Calculated 146 mg/dL (<100); Potassium 4.1 mmol/L (3.3-5.1); Sodium 143 mmol/L (135-145); Triglycerides 80 mg/dL (<150); Vitamin D 25-OH Total 39.5 ng/mL (>30)
== END 2024-07-02 08:24 | disposition home or self-care (01) ==
LOC: HO.HMGCLDS 08:23
PROVIDERS: PCP Internal Medicine; Visit Provider Internal Medicine
DX: Z00.01 Encounter for general adult medical examination with abnormal findings (principal); E78.5 Hyperlipidemia, unspecified; E55.9 Vitamin D deficiency, unspecified; Z13.1 Encounter for screening for diabetes mellitus; Z78.0 Asymptomatic menopausal state
CPT/HCPCS: 36415; 80048; 80061; 82306; 84450; 84460; 96127

== ENCOUNTER 2024-07-17 10:14 | Outpatient (AMB) | payer OTHER, SELFPAY ==
--- NOTE | 2024-07-17 10:16 | A.OFFVIS_ITS ---
Vital Signs 07/17/24 10:18 Height 5 ft 4 in Weight 130 lb BMI 22.3 BP 164/82 H Blood Pressure Location Lt brachial Position Sitting Respiration 16 Pulse 79 Pulse Source Pulse Oximeter Pulse Oximetry (%) 99 Oxygen Delivery Method Room Air Intake Visit Reasons: Cervicalgia Allergies No Known Allergies Allergy (Verified 07/17/24 10:19) Medication List - Last Reconciled 07/17/24 by Malia Alamo LPN ibuprofen 800 mg PO Q8H lidocaine 5% 1 patch topical DAILY lisinopril 5 mg PO DAILY lorazepam 0.5 mg PO DAILY PRN paroxetine HCl 20 mg PO DAILY HPI HPI Cervicalgia: Details: History of Present Illness The patient is a 63-year-old female presenting with chronic neck pain. The pain originated from a background of cervical facet arthropathy and degenerative disc disease, progressively interfering with her occupational duties and daily life. Symptoms began months ago, marked by morning and evening exacerbations with a pain intensity of 6-10 out of 10. Treatments including muscle relaxants, lidocaine patches, and NSAIDs yielded minimal relief. Physical therapy proved unhelpful, aggravating symptoms during the final session. A cervical x-ray identified severe arthritis. A nerve conduction study found no nerve impingement in the right extremity. Her quality of sleep is disrupted, necessitating arm positioning for neck support. These factors collectively highlight the debilitating impact on her functional status, linking with her pre-existing diabetes, and emphasizing ongoing interference with her general wellbeing. Pain Description - Onset and timing: Pain began several months ago, with exacerbation in the morning and evening. - Quality and character: Aching and grinding sensations accompanied by crackling noises during movement. - Primary location: Neck, with no radiation to arms. - Exacerbating factors: Movement, certain positions, and physical therapy worsened symptoms. - Relieving factors: Attempted relief with muscle relaxants, ibuprofen, and lidocaine patches was minimally effective. 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 Physical Exam - Musculoskeletal- Neck extension produced discomfort; 20-degree rotation and lateral flexion to the right were noted, with grinding noted on movement. - Additional findings- Limited range of neck motion. Results - X-ray: Severe arthritis noted in the cervical spine. - Nerve conduction study: Minimal findings on the right upper extremity nerve study. Pain Management - Affect: The pain impacts patient's ability to sleep and perform occupational tasks without discomfort. - Analgesia: Current medications include muscle relaxants, lidocaine patches, ibuprofen; moderate analgesia achieved with suboptimal outcomes. - Adverse Effects: Muscle relaxant prescribed in May had some improvement but minimal lasting effects reported. 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 - Aberrant Drug Related Behaviors: None reported or observed. [facility] Medical History (Updated 07/19/24 @ 13:17 by Bernardo Hayes MD) Essential hypertension Cervicalgia of lwcluonf-pwkszdo-vwetz region Carpal tunnel syndrome, right Vitamin D deficiency Dyslipidemia Adult general medical exam Colon cancer screening Surgical History No pertinent past surgical history Family History Maternal Uncle History of myocardial infarction Coronary artery disease Mother Coronary artery disease Maternal Aunt Coronary artery disease, Onset Age: 70 Brother Coronary artery disease Social History Housing: House Patient Tobacco Use Status: Never used Tobacco e-Cigarette/Vaping Use: Never Used Second Hand Smoke Exposure: No service: No Current occupational status: retired 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 [employer] Current occupational exposures/hazards: No Cognitive needs: No Hearing needs: No Vision needs: Yes Physical Exam Vital Signs: Last Vital Signs Pulse 79 07/17/24 10:18 Resp 16 07/17/24 10:18 BP 164/82 H 07/17/24 10:18 Pulse Ox 99 07/17/24 10:18 Oxygen Delivery Method Room Air 07/17/24 10:18 BMI result Body Mass Index 22.3 Assessment & Plan Assessment & Plan (1) Cervicalgia of nmngttiz-ssxdcnq-ppqtv region: Code(s): M54.2 - Cervicalgia Category: Medical (2) Occipital neuralgia: Code(s): M54.81 - Occipital neuralgia Category: Medical Plan Plan The comprehensive treatment plan for the patient's chronic neck pain due to cervical facet arthropathy and degenerative disc disease encompasses potential peripheral nerve stimulation for pain modulation, contingent on insurance approval. Should authorization be denied, alternative interventions such as facet joint injections or radiofrequency ablation will be explored. PRP injections are considered, though insurance may not cover these costs. Ongoing evaluation and follow-up post-intervention are critical to refining management strategies based on symptomatic response. Patient was informed and verbally consented to the use of an ambient scribe for clinic note documentation during this visit. Discussion Notes In our conversation, I emphasized the primary diagnosis of cervical facet arthropathy and degenerative disc disease contributing to the patient's chronic pain. We explored therapeutic options, including peripheral nerve stimulation, with the understanding of its potential efficacy and insurance authorizations required. The benefits include minimally invasive pain relief with minimal adverse tissue impact compared to other procedures like radiofrequency ablation, which might damage nerve tissue. I advised the patient that if the insurance authorization is not granted, additional options such as facet joint injections could be considered. The patient was informed of the success rates and the minor risk of discomfort following the procedure. A review of instructions for managing daily activities and procedural follow-ups was conducted. Patient Instructions - Await notification for insurance approval regarding nerve stimulation. - Maintain current conservative management techniques unless notified otherwise. - Avoid movements likely to exacerbate neck pain, as previously discussed. - Prepare for possible facet joint injections or other interventions if indicated and required by pain management plans. - Contact our office promptly if any new or worsening symptoms develop. - Follow guidelines for any recommended procedures post-approval and anticipate communication for scheduling. Coding Level of Care Code New Pt Level 4 (32064) Diagnoses Cervicalgia of jzjubmek-vxvbemz-xyomx region M54.2 Occipital neuralgia M54.81
[2024-07-17 10:18] VITALS: BP 164/82; PULSE 79; RESP 16; O2SAT 99; BMI 22.3
== END 2024-07-17 10:45 | disposition home or self-care (01) ==
LOC: HO.PMC 10:15
PROVIDERS: PCP Internal Medicine; Referring Provider Internal Medicine; Visit Provider Internal Medicine
DX: M54.2 Cervicalgia (principal); M54.81 Occipital neuralgia
CPT/HCPCS: 99204

== ENCOUNTER → 2024-07-17 10:14 | Outpatient (BNVA) | payer OTHER, SELFPAY | PROVIDERS: PCP Internal Medicine; Referring Provider Internal Medicine; Visit Provider Internal Medicine ==

== ENCOUNTER 2024-08-21 13:28 | Outpatient (REF) | payer OTHER, SELFPAY ==
--- NOTE | ~2024-08-21 | MM_ITS ---
EXAMINATION: DXA BONE DENSITY AXIAL HISTORY: Z12.31 - Encounter for screening mammogram for malignant neoplasm of breast TECHNIQUE: [employer] Dual energy absorptiometry (DEXA) of the lumbar spine, total left hip, and femoral neck was performed. COMPARISON: There are no prior studies for comparison. FINDINGS: The bone mineral density of the lumbar spine is 0.825 with a T-score of -3.0, and a Z-score of -1.3. This is indicative of osteoporosis. The bone mineral density of the left total hip is 0.891 with a T-score of -0.9, and a Z-score of 0.3. This is indicative of normal bone mineral density. The bone mineral density of the left femoral neck is 0.733 with a T-score of -2.2, and a Z-score of -0.7. This is indicative of osteopenia. MM/XR DEXA axial skeleton IMPRESSION: Based on bone mineral density, and according to World Health Organization (WHO) criteria, the diagnosis is consistent with osteoporosis. All bone density values are in grams per centimeter squared (g/cm2). Statistically, 68% of repeat scans fall within 1 SD (+/- 0.010 g/cm2 for AP spine L1-L4) and 1 SD (+/- 0.012 g/cm2 for femur total) FRAX is a trademark of the [employer], a World Health Organization (WHO) Collaborating Center. Electronically signed by: Sidney Talley MD 08/21/2024 03:09 PM EDT
== END 2024-08-21 13:29 | disposition home or self-care (01) ==
LOC: HO.MAMMO 13:28
PROVIDERS: PCP Internal Medicine; Visit Provider Internal Medicine
DX: Z12.31 Encounter for screening mammogram for malignant neoplasm of breast (principal); Z13.820 Encounter for screening for osteoporosis; Z78.0 Asymptomatic menopausal state
CPT/HCPCS: 77063; 77067; 77080

== ENCOUNTER → 2024-08-21 14:00 | Outpatient (BNV) | payer OTHER, SELFPAY | PROVIDERS: PCP Internal Medicine; Visit Provider Radiology Diagnostic Radiology | DX: E28.39 Other primary ovarian failure (principal) | CPT/HCPCS: 77080 ==

== ENCOUNTER 2024-09-25 12:42 | Outpatient (REF) | payer OTHER, SELFPAY ==
--- NOTE | ~2024-09-25 | MM_ITS ---
EXAMINATION: MM DIAGNOSTIC DIGITAL BREAST TOMOSYNTHESIS, LEFT Limited left breast ultrasound. CLINICAL INFORMATION: Call back from screening for focal asymmetry upper central left breast posterior depth. COMPARISON: Mammography: Prior imaging PACS. TECHNIQUE: Digital breast tomosynthesis is performed in both the craniocaudal and mediolateral oblique views along with computer-aided detection (CAD). Synthesized 2D images are generated from the tomosynthesis. FINDINGS: The breasts are heterogeneously dense, which may obscure small masses (ACR BI-RADS breast composition Category c). The previously seen focal asymmetry in the upper central breast posterior depth does not persist on additional imaging projections and likely represented overlapping breast tissue. There are no significant masses, abnormal calcifications, or other abnormalities. Targeted color Doppler ultrasound scanning in the upper central breast from 10-2 o'clock demonstrates normal fibroglandular breast tissue. There is no sonographic abnormality. MM/MM tomosynthesis added views L IMPRESSION: No mammographic evidence of malignancy. ASSESSMENT: BI-RADS BI-RADS 1 - Negative RECOMMENDATION: 1 year F/U Results were provided to the patient at time of visit by the technologist. This patient's information was entered into a reminder system with a target due date for their next mammogram. Electronically signed by: Kristie Montemayor DO 09/25/2024 01:43 PM EDT
== END 2024-09-25 12:43 | disposition home or self-care (01) ==
LOC: HO.MAMMO 12:42
PROVIDERS: PCP Internal Medicine; Visit Provider Internal Medicine
DX: N64.89 Other specified disorders of breast (principal)
CPT/HCPCS: 76642; 77061; 77065

== ENCOUNTER → 2024-09-25 13:00 | Outpatient (BNV) | payer OTHER, SELFPAY | PROVIDERS: PCP Internal Medicine; Visit Provider Internal Medicine | DX: R92.8 Other abnormal and inconclusive findings on diagnostic imaging of breast (principal) | CPT/HCPCS: 76642; 77061; 77065 ==

== ENCOUNTER 2024-11-29 09:00 | Outpatient (AMB) | payer OTHER, SELFPAY ==
[2024-11-29 09:04] VITALS: BP 141/79; PULSE 75; RESP 16; O2SAT 100; BMI 22.1
--- NOTE | 2024-11-29 09:04 | A.OFFVIS_ITS ---
Vital Signs 11/29/24 09:04 Height 5 ft 4 in Weight 129 lb BMI 22.1 BP 141/79 H Blood Pressure Location Lt brachial Position Sitting Respiration 16 Pulse 75 Pulse Source Pulse Oximeter Pulse Oximetry (%) 100 Oxygen Delivery Method Room Air Intake Visit Reasons: PROCEDURE OPTION DISCUSSION Machine Tender Required: No Accompanied by: Self / Same As Patient Allergies No Known Allergies Allergy (Verified 11/29/24 09:16) HPI HPI PROCEDURE OPTION DISCUSSION: Details: History of Present Illness The patient is a 63-year-old female presenting with chronic neck pain. The pain is primarily localized to the neck, with the right side being more affected. She has previously undergone physical therapy without significant improvement. The patient has not undergone any neck surgery in the past. A trial of temporary nerve stimulation was denied by insurance, and the pain has not changed since the last visit. Pain Description - Onset: Persistent neck pain - Location: Primarily in the neck, worse on the right side - Exacerbating factors: None specified - Relieving factors: None specified - Interference: No significant improvement with physical therapy Physical Exam - Musculoskeletal: Neck pain predominantly on the right side, pain on neck extension & facet loading [facility] Medical History (Updated 12/03/24 @ 13:50 by Bernardo Hayes MD) Essential hypertension Cervicalgia of uqhaanmq-dxnlgtx-gembs region Carpal tunnel syndrome, right Vitamin D deficiency Dyslipidemia Adult general medical exam Colon cancer screening Surgical History No pertinent past surgical history Family History Maternal Uncle History of myocardial infarction Coronary artery disease Mother Coronary artery disease Maternal Aunt Coronary artery disease, Onset Age: 70 Brother Coronary artery disease Social History Housing: House Patient Tobacco Use Status: Never used Tobacco e-Cigarette/Vaping Use: Never Used Second Hand Smoke Exposure: No service: No Current occupational status: retired 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 [employer] Current occupational exposures/hazards: No Cognitive needs: No Hearing needs: No Vision needs: Yes Physical Exam Vital Signs: Last Vital Signs Pulse 75 11/29/24 09:04 Resp 16 11/29/24 09:04 BP 141/79 H 11/29/24 09:04 Pulse Ox 100 11/29/24 09:04 Oxygen Delivery Method Room Air 11/29/24 09:04 BMI result Body Mass Index 22.1 Assessment & Plan Assessment & Plan (1) Cervical spondylosis: Code(s): M47.812 - Spondylosis without myelopathy or radiculopathy, cervical region Category: Medical Plan Plan - Initiate the process for obtaining authorization for the first round of diagnostic injections. Plan to perform right-sided diagnostic cervical C3, C4, C5 medial branch blocks. - If successful, proceed with radiofrequency ablation for long-term pain relief. Patient was informed and verbally consented to the use of an ambient scribe for clinic note documentation during this visit. Discussion Notes I discussed with the patient the denial of the temporary nerve stimulation trial and the alternative option of radiofrequency ablation for her chronic neck pain. We reviewed the process involving two rounds of diagnostic injections to gain insurance approval for the procedure. The patient was informed about the expected duration of relief from radiofrequency ablation and the procedural steps involved. Patient Instructions - Await a call from the nurse to schedule the first round of test injections. - Understand that the process involves two rounds of test injections before proceeding with radiofrequency ablation. Coding Level of Care Code Est Pt Level 3 (18025) Diagnoses Cervical spondylosis M47.812
== END 2024-11-29 09:45 | disposition home or self-care (01) ==
LOC: HO.PMC 09:01
PROVIDERS: PCP Internal Medicine; Visit Provider Internal Medicine
DX: M47.812 Spondylosis without myelopathy or radiculopathy, cervical region (principal)
CPT/HCPCS: 99213

== ENCOUNTER 2025-02-27 06:21 | Outpatient (REF) | payer OTHER, SELFPAY ==
--- NOTE | ~2025-02-27 | FL_ITS ---
EXAMINATION: FL GUIDANCE ONLY HISTORY: M47.812 - Spondylosis without myelopathy or radiculopathy, cervical region COMPARISON: None available. TECHNIQUE: Fluoroscopy time: 0.1 minute. Cumulative Dose: 1.10 mGy. DAP: 25.85 uGym2 Images: 3. FINDINGS: Fluoroscopic spot films of the cervical spine demonstrate needles and contrast material in place on the right. FL/FL guidance in treatment room IMPRESSION: Fluoroscopy during procedure. Please see procedure report for additional information. Electronically signed by: Sidney Talley MD 02/27/2025 03:13 PM EDT
== END 2025-02-27 06:22 | disposition home or self-care (01) ==
LOC: CF 06:21
PROVIDERS: Visit Provider Internal Medicine
DX: M47.816 Spondylosis without myelopathy or radiculopathy, lumbar region (principal)
CPT/HCPCS: 64490; 64491; J2795; Q9967

== ENCOUNTER 2025-02-27 11:44 | Outpatient (AMB) | payer OTHER, SELFPAY ==
[2025-02-27 11:55] VITALS: BP 142/82; PULSE 77; RESP 16; O2SAT 93
--- NOTE | 2025-02-27 11:55 | A.OFFVIS_ITS ---
Vital Signs 02/27/25 11:55 02/27/25 12:44 BP 142/82 H 110/82 Blood Pressure Location Lt brachial Lt brachial Position Sitting Sitting Respiration 16 16 Pulse 77 67 Pulse Source Pulse Oximeter Pulse Oximeter Pulse Oximetry (%) 93 97 Oxygen Delivery Method Room Air Room Air Intake Visit Reasons: Right Diagnostic Cervical C3-C4-C5 MBB Physician Scientist Required: No Accompanied by: Child Allergies No Known Allergies Allergy (Verified 02/27/25 11:56) Medication List - Last Reconciled 02/27/25 by Malia Alamo LPN cyclobenzaprine 5 mg PO TID PRN ibuprofen 800 mg PO Q8H lidocaine 5% 1 patch topical DAILY lisinopril 5 mg PO DAILY lorazepam 0.5 mg PO DAILY PRN paroxetine HCl 20 mg PO DAILY HPI HPI Right Diagnostic Cervical C3-C4-C5 MBB: Details: Patient presents for scheduled procedure. Denies any recent cough, cold, infection, fever or other significant changes in medical history since last office visit. [facility] Medical History (Updated 12/03/24 @ 13:50 by Bernardo Hayes MD) Essential hypertension Cervicalgia of ypngpgfo-rpjjeeu-bilxd region Carpal tunnel syndrome, right Vitamin D deficiency Dyslipidemia Adult general medical exam Colon cancer screening Surgical History No pertinent past surgical history Family History Maternal Uncle History of myocardial infarction Coronary artery disease Mother Coronary artery disease Maternal Aunt Coronary artery disease, Onset Age: 70 Brother Coronary artery disease Social History Housing: House Patient Tobacco Use Status: Never used Tobacco e-Cigarette/Vaping Use: Never Used Second Hand Smoke Exposure: No service: No Current occupational status: retired 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 The patient was placed in a lateral position. The respective cervical area was prepped with chloraprep and draped in sterile fashion. The skin over the target medial branch nerves was anesthetized with 0.5% lidocaine. A 25 gauge 1.5 inch needle was inserted into the target medial branch nerve under fluoroscopic guidance. No paresthesias were elicited with needle placement and aspiration was negative for blood and CSF. Next, 0.2cc of omnipaque 180 was injected to verify positioning. Next 0.5 ml 0.5% ropivicaine was injected (0.5 cc total per level). The identical procedure was performed at the remaining levels. The skin was cleansed and a sterile bandage was applied. Following the procedure the patient's vital signs were stable. The patient tolerated the procedure well and no complications were encountered. Following the procedure the patient's vital signs were stable. The patient was discharged home in good condition with post-procedural instructions. Time Out: Immediately prior to the procedure, the following was verbally confirmed that there is a signed consent form and that the correct patient, planned procedure, site and side are consistent with documentation and that necessary equipment and/or blood products are available prior to the start of the case. Complications: none EBL: <5 cc 32189 - with Fluoroscopy 11888 - second level, with Fluoroscopy Procedure code (CPT) selection complete Assessment & Plan Assessment & Plan (1) Cervical spondylosis: Code(s): M47.812 - Spondylosis without myelopathy or radiculopathy, cervical region Category: Medical Plan Patient is status post right C3, C4, C5 diagnostic medial branch blocks. Patient tolerated procedure well and was discharged home in stable condition with discharge instructions. All questions were answered. We will follow-up via telephone or in clinic to assess response to therapy. A follow-up appointment was made during today's visit. Orders: Orders AMB Facet Injection-Cervical/Thoracic Today Bernardo Hayes MD M47.812 - Spondylosis without myelopathy or radiculopathy, cervical region FL guidance in treatment room Today Shanti Rivera APRN, [employer]PLICATIONS SALES CONSULTANT M47.812 - Spondylosis without myelopathy or radiculopathy, cervical region Coding Level of Care Code Procedure Only Diagnoses Cervical spondylosis M47.812 CPT Codes Facet Injection Cervical/Thoracic - CPT: 34930 - with Fluoroscopy ([id number]) Facet Injection Cervical/Thoracic - CPT: 28815 - second level, with Fluoroscopy ([id number])
[2025-02-27 12:44] VITALS: BP 110/82; PULSE 67; RESP 16; O2SAT 97
== END 2025-02-27 12:44 | disposition home or self-care (01) ==
LOC: HO.PMCPRC 11:44
PROVIDERS: PCP Internal Medicine; Visit Provider Internal Medicine
DX: M47.812 Spondylosis without myelopathy or radiculopathy, cervical region (principal)
CPT/HCPCS: 64490; 64491

== ENCOUNTER 2025-03-03 09:02 | Outpatient (AMB) | payer OTHER, SELFPAY ==
--- NOTE | 2025-03-03 09:08 | MHC.OFFVIS ---
Vital Signs 03/03/25 09:10 Height 5 ft 4 in Weight 132 lb BMI 22.7 BP 106/72 Blood Pressure Location Lt brachial Position Sitting Respiration 16 Pulse 80 Pulse Source Pulse Oximeter Intake Visit Reasons: S/P Right Diagnostic Cervical C3-C4-C5 MBB Geospatial Specialist Required: No Allergies No Known Allergies Allergy (Verified 03/03/25 09:12) Medication List - Last Reconciled 03/03/25 by Malia Alamo LPN cyclobenzaprine 5 mg PO TID PRN lisinopril 5 mg PO DAILY lorazepam 0.5 mg PO DAILY PRN paroxetine HCl 20 mg PO DAILY HPI HPI S/P Right Diagnostic Cervical C3-C4-C5 MBB: Details: History of Present Illness The patient is a 64-year-old female presenting with cervical facet joint pain. She underwent diagnostic cervical medial branch blocks at C3, C4, and C5, which initially improved her range of motion and reduced pain by 80%. However, she experienced shooting pains in her neck later that day, although she reported sleeping well that night. The patient has a history of osteoarthritis of the cervical spine, which has been managed with various interventions over the years. She has been considering long-term treatment options, including radiofrequency ablation, which has been discussed as a potential next step if further diagnostic injections confirm its suitability. Pain Description - Onset: Pain improved initially after cervical medial branch blocks but returned with shooting pains later in the day. - Quality: Shooting pains in the neck. - Location: Cervical spine, specifically C3, C4, and C5. - Relieving factors: Initial relief from medial branch blocks. - Interference: Pain affects neck mobility, requiring full body movement to look behind while driving. Physical Exam - Appears afebrile. - Alert and oriented. - Mood and affect appropriate. - Follows and participates in conversation appropriately. - Respiratory effort is unlabored. Pain Management - Affect: Pain impacts daily activities, particularly driving and sleep. - Analgesia: Initial relief from cervical medial branch blocks, considering radiofrequency ablation for long-term relief. - Adverse Effects: None reported from current interventions. - Activities of Daily Living: Pain affects neck mobility, impacting driving and sleep quality. - Aberrant Drug Related Behaviors: None reported. [facility] Medical History (Updated 12/03/24 @ 13:50 by Bernardo Hayes MD) Essential hypertension Cervicalgia of qhvkswmm-zskxeuc-epyla region Carpal tunnel syndrome, right Vitamin D deficiency Dyslipidemia Adult general medical exam Colon cancer screening Surgical History No pertinent past surgical history Family History Maternal Uncle History of myocardial infarction Coronary artery disease Mother Coronary artery disease Maternal Aunt Coronary artery disease, Onset Age: 70 Brother Coronary artery disease Social History Housing: House Patient Tobacco Use Status: Never used Tobacco e-Cigarette/Vaping Use: Never Used Second Hand Smoke Exposure: No service: No Current occupational status: retired 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 1. Cervical Facet Joint Pain - Repeat C3, C4, C5 diagnostic blocks right - Consider radiofrequency ablation if further diagnostic injections confirm suitability. - Discussed PRP injections as an alternative, though not covered by insurance. 2. Osteoarthritis Of The Cervical Spine - Continue current management strategies, considering radiofrequency ablation for long-term relief. Discussion Notes I discussed with the patient the potential benefits and risks of radiofrequency ablation, which could provide relief for about a year if successful. We also reviewed the option of PRP injections, noting that they are not covered by insurance and would require [id number] payment. The patient was advised to consider these options and decide based on her preferences and financial considerations. Patient Instructions - Consider the discussed treatment options and decide based on personal preference and financial situation. - Follow up with the clinic to schedule further diagnostic injections if opting for radiofrequency ablation. - Contact the clinic if choosing to proceed with PRP injections for scheduling and payment arrangements. Coding Level of Care Code Est Pt Level 3 (18502) Diagnoses Cervical spondylosis M47.812
[2025-03-03 09:10] VITALS: BP 106/72; PULSE 80; RESP 16; BMI 22.7
== END 2025-03-03 09:49 | disposition home or self-care (01) ==
LOC: HO.PMC 09:03
PROVIDERS: PCP Internal Medicine; Visit Provider Internal Medicine
DX: M47.812 Spondylosis without myelopathy or radiculopathy, cervical region (principal)
CPT/HCPCS: 99213